=== PATIENT | female | born 2000 | race Caucasian/White ===

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

== ENCOUNTER 2023-03-15 09:19 | Observation (INO) | payer OTHER ==
[~2023-03-15] VITALS: Ht 154.9 cm; Wt 61.7 kg
[2023-03-15] MEDS ORDERED: ONDANSETRON HCL 4MG/2ML INJ IV PRN ×2 (10:15)
[2023-03-15] MEDS ORDERED: LACTATED RINGERS 1,000 ML IV SCH ×2 (10:30→11:00)
[2023-03-15] MEDS ORDERED: PNV1TABL61 MT (11:50)
[2023-03-15 12:31] LABS: CHLORIDE 110 mEq/L (98-107); INDEX HEMOLYSI 1 (1-3); INDEX ICTERIC 1 (1-4); INDEX LIPEMIC 1 (1-3); POTASSIUM 3.5 mEq/L (3.5-5.1); SODIUM 139 mEq/L (136-145)
[2023-03-15 12:31] LABS: HEMATOCRIT. 36.8 % (36.0-48.0); HEMOGLOBIN. 12.5 g/dL (12.0-16.0); MEAN CORPUSCULAR VOLUME 94.2 fL (81.0-99.0); MEAN PLATELET VOLUME 9.3 fl (7.4-10.4); PLATELET 223 x1000/uL (130-400); RED BLOOD CELL COUNT 3.91 mill/uL (4.2-5.4); RED CELL DISTRIBUTION WIDTH 13.5 % (11.6-14.6)
[2023-03-15 12:35] LABS: DIFFERENTIAL COMMENT 1
[2023-03-15 12:43] LABS: ALANINE AMINOTRANSFERASE 16 IU/L (13-61); ALBUMIN 2.7 g/dL (3.4-5.0); ASPARTATE AMINOTRANSFERASE 14 IU/L (15-37); BILIRUBIN TOTAL 0.4 mg/dL (0.1-1.0); CARBON DIOXIDE 25 mEq/L (21-32); CREATININE 0.5 mg/dL (0.6-1.3); GLUCOSE 76 mg/dL (70-105); PROTEIN TOTAL 6.3 g/dL (6.0-8.3); UREA NITROGEN BLOOD 4 mg/dL (7-21)
[2023-03-15 13:05] LABS: PLATELET ESTIMATE NORMAL
[2023-03-15 13:09] LABS: CLARITY URINE CLEAR (CLEAR); COLOR URINE YELLOW (YELLOW); GLUCOSE URINE NEGATIVE (NEGATIVE); KETONES URINE TRACE (NEGATIVE); LEUKOCYTE ESTERASE URINE NEGATIVE (NEGATIVE); NITRITE URINE NEGATIVE (NEGATIVE); OCCULT BLOOD URINE TRACE (NEGATIVE); PROTEIN URINE NEGATIVE (NEGATIVE); SPECIFIC GRAVITY URINE 1.008 (1.005-1.030); UROBILINOGEN URINE 0.2 E.U./dL (0.2-1.0)
[2023-03-15 13:12] LABS: RBC URINE 0-2 /hpf (0-2); SQUAMOUS EPITHELIAL CELL URINE 1+ /lpf (RARE/1+); YEAST URINE NONE SEEN
[2023-03-15 13:32] LABS: BACTERIA URINE FEW; WBC URINE 0-2 /hpf (0-2)
== END 2023-03-15 14:30 | disposition home or self-care (01) ==
LOC: 8 EST LDRP 09:19
PROVIDERS: ADMIT Obstetrics & Gynecology; ATTEND Obstetrics & Gynecology
DX: O21.2 Late vomiting of pregnancy (principal); O26.92 Pregnancy related conditions, unspecified, second trimester; R04.2 Hemoptysis; Z3A.25 25 weeks gestation of pregnancy
CPT/HCPCS: 59025; 96372; 96360; 96361; 99281; 80053; 81003; 85025; 36415; 76818; 76805; 96374; G0378 ×3; J2405; J7120